=== PATIENT | male | born 1975 | race Caucasian/White ===

== ENCOUNTER 2016-12-12 13:15 | Observation (INO) | payer OTHER ==
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
--- NOTE | ~2016-12-12 | EEG ---
Electroencephalogram [facility] [address] [place]. [address] NAME: BHASKAR RODRIGUES : 73 STATUS : ADM Ian PAT#: [id number] AGE: 41 ADM/REG DATE : 12/12/16 MR#: [id number] REPORT SERV DATE: 12/14/16 DICTATED BY: DATE: REPORT STATUS : Draft TRANSCRIBED BY: MODL DATE: 12/14/16 CLINICAL INDICATION: Loss of consciousness episodes. DESCRIPTION: This EEG was performed using 10/20 electrode placement system. During this EEG study, the patient was noted to have symmetric background activity with predominant occipital rhythm of 9 to 10 hertz. Photic stimulation was performed with appropriate driving response. Hyperventilation was also performed. No focal abnormalities, seizure activity, or seizure discharge was noted during the EEG study. During the EEG study, the patient was noted to have frequent bilateral frontal beta activities with a concern for medication side effects such as benzodiazepine or phenobarbital; however, no focal abnormalities, seizure activity, or seizure discharge was otherwise noted during the EEG evaluation. The patient achieved drowsy state during the EEG study. INTERPRETATION: This EEG study obtained during awake and drowsy state may be considered within normal limits. No focal abnormalities, seizure activity, or seizure discharge was noted. Of note, normal EEG does not preclude the diagnosis of seizure disorder. Clinical correlation is recommended. [facility] Theron Pacheco MD / [id number] CC: Kelly Mora M.D.
--- NOTE | ~2016-12-12 | DS ---
Discharge Summary [facility] [address] [place]. [address] NAME: BHASKAR RODRIGUES : 73 STATUS : ADM Ian PAT#: [id number] AGE: 41 ADM/REG DATE : 12/12/16 MR#: [id number] REPORT SERV DATE: 12/14/16 DICTATED BY: KATIE PACK DATE: 12/14/16 REPORT STATUS : Draft TRANSCRIBED BY: MODMarshal DATE: 12/14/16 ADMISSION DATE: 12/12/2016 DISCHARGE DATE: 12/14/2016 DIAGNOSIS ON ADMISSION: 1. Syncopal episodes. 2. Acute sinusitis. 3. Depression and anxiety. 4. Reported history of aortic valvular disease. 5. History of depression and anxiety. DIAGNOSIS ON DISCHARGE: 1. Status post syncopal/presyncopal episodes at home with consciousness loss. No evidence of orthostatic hypotension. 2. Polypharmacy on multiple medications which could cause lethargy as well as elevated heart rate, currently on Adderall. 3. History of intermittent explosive disorder and panic attacks. 4. Possible migraine as a cause of consciousness loss versus panic attacks and medication side effect. Questionable history of narcolepsy, still under evaluation per Dr. Del Castillo. 5. Negative cardiac workup with normal echocardiogram. No evidence of valvular heart disease. Normal telemetry strip. Bail Agent Dr. Cantrell did not recommend any further workup and the patient recommended to follow up with Dr. Del Castillo. 6. Slightly enlarged thyroid. Needs outpatient thyroid ultrasound to be arranged per Dr. Braeden Caro. 7. Polypharmacy needs to reduce Adderall and Klonopin under the guidance of primary care physician. 8. Intermittent explosive disorder. Depakote was recommended per neurologist for mood control. CONSULTANTS DURING THIS HOSPITALIZATION: Nurse practitioner of Neurology, Jumana Calderon with Dr. Pacheco and sales process manager, Dr. Cantrell. IMAGING STUDIES DONE DURING THIS HOSPITALIZATION: Chest x-ray on December 12 normal chest x- ray. No evidence of any pneumonia. CT of the brain without contrast, December 12, 2016, no acute intracranial abnormality. CTA of the brain with and without contrast, unremarkable appearance of intracranial arterial circulation. No acute intracranial abnormality. Left maxillary sinus disease. CTA of the neck, no significant carotid and vertebral artery stenosis. Nodular changes in the right thyroid lobe measuring up to 13 mm in size; suggest further evaluation with thyroid ultrasound. Left maxillary sinus disease. Echocardiogram done on 12/13/2016, showed normal left ventricular systolic function with ejection fraction 50% to 55%. Mild diastolic dysfunction. Dilated left atrium. Normal right ventricular chamber size and systolic function. No evidence of significant valvular disease. No evidence of any regurgitation or stenosis. Bilateral carotid ultrasound: No significant carotid artery stenosis on both sides. MRI of the brain, 12/13/2016, negative Discharge Summary [address] [address] NAME: BHASKAR RODRIGUES : 73 STATUS : ADM Ian PAT#: [id number] AGE: 41 ADM/REG DATE : 12/12/16 MR#: [id number] REPORT SERV DATE: 12/14/16 DICTATED BY: KATIE PACK DATE: 12/14/16 REPORT STATUS : Draft TRANSCRIBED BY: PEACE DATE: 12/14/16 MRI of the brain. Electroencephalography done today was within normal limits. HISTORY OF PRESENT ILLNESS: Briefly, this is a 41-year-old male who was admitted by my colleague, Dr. Christa Cunningham, who basically admitted this patient for syncopal/presyncopal episodes and also the patient was telling that he has obstructive aortic valve disease and the patient had two syncopal episodes or near syncopal according to the dictation of Dr. Cunningham. For the details, see dictation of Dr. Cunningham. HOSPITAL COURSE: Briefly, the patient was admitted to the hospital and his blood pressure checked and he was not orthostatic. His blood pressure on lying down was 132/88 and on standing was 136/75. He had mild tachycardia but it was related to the patient using Adderall, and the patient was explained that Adderall can cause tachycardia and can cause some problems and he was recommended to taper his Adderall under the guidance of his primary care physician. Also on further workup, sales process manager was consulted. He did not find any cardiac pathology. His echocardiogram was normal as well as telemetry strip did not show any significant abnormalities. Dr. Cantrell recommended patient to follow up with Dr. Del Castillo to continue further evaluation. The patient reported that he may have a narcolepsy and Dr. Del Castillo was referring him to some studies regarding this. In the same time, the patient told me that he has intermittent explosive disorder when he has episodes of anger and then he cannot remember what happened. Neurology was consulted. Jumana Calderon, nurse practitioner, saw the patient and he thinks that the patient may have some mood problems, so she recommended the patient to be on Depakote. For this reason, he thinks he may have a migraine which could also cause episodes of consciousness loss especially with a complicated migraine. There is no evidence of any vertebrobasilar insufficiency. The CTA of the brain and the neck was normal as well as MRI and every other study. The patient also is on Klonopin for generalized anxiety and panic attacks, and he takes 2 mg three times a day. Klonopin can also cause increased sleepiness and it can cause also episodes of consciousness loss. It was recommended to taper Klonopin under the guidance of the primary care doctor. It was explained to the patient that he cannot stop Klonopin abruptly, but it could be tapered. His tachycardia was also related to his Adderall; if he will come of Adderall, his tachycardia will resolve. Bail Agent did not recommend any beta blockage on this patient. This is related to Adderall. His blood pressure is still in the normal range. He has chronic sinusitis without any fever without any pain. He will complete his Levaquin for two more days. Also, the patient had enlarged thyroid on the CT scan but his thyroid function was normal. His TSH was 1.9. Free T4 was 1.17. We recommend outpatient thyroid ultrasound to be arranged per Dr. Braeden Caro or his partner. OVERALL IMPRESSION: Passing out episodes could be related to polypharmacy, Klonopin, Adderall which should be tapered as well as the patient has intermittent explosive disorder which also could be related to it, and complicated migraine is also a possibility. For this reason, the patient is placed on Depakote and as well as for mood control. Jumana Calderon Discharge Summary [address] [address] NAME: BHASKAR RODRIGUES : 73 STATUS : ADM Ian PAT#: [id number] AGE: 41 ADM/REG DATE : 12/12/16 MR#: [id number] REPORT SERV DATE: 12/14/16 DICTATED BY: KATIE PACK DATE: 12/14/16 REPORT STATUS : Draft TRANSCRIBED BY: PEACE DATE: 12/14/16 recommended Depakote to be given at the dose 250 mg p.o. twice a day, and Depakote level needs to be checked, per primary care physician, in seven days. The patient also told that he should not drive and the patient told me that he is not driving. The patient is discharged in a stable condition. He needs to follow up with Dr. Braeden Caro or Yan Hernandez at [facility] walk-in [facility] in one week. Serum Depakote level and ammonia level needs to be checked in a week. Here his ammonia level was mildly elevated at 42 but he did not have any sleepiness. His all other lab work was in the normal range. The patient to have outpatient thyroid ultrasound to be arranged per Dr. Braeden Caro. This was also explained to the patient. DISCHARGE MEDICATIONS: 1. Aspirin 81 mg p.o. daily, not to take on an empty stomach. 2. Depakote 250 p.o. twice a day. 3. Zoloft 50 mg a day. 4. Adderall 10 mg p.o. b.i.d., and the patient was told that it needs to be tapered per primary care physician. He needs to discuss with primary care physician regarding tapering this. 5. The patient to stop Flexeril. 6. The patient to stop acetaminophen with codeine. 7. Multivitamins daily. 8. Klonopin 2 mg p.o. t.i.d. and it needs to be tapered per primary care physician. He needs to discuss regarding tapering Klonopin with primary care physician. Depakote level to be checked in one week per primary care, Dr. Braeden Caro and recheck ammonia level in one week. Ultrasound of the thyroid to be arranged as an outpatient per primary care physician. The patient to follow up also with Dr. Del Castillo outpatient as scheduled. The patient was discharged in a stable condition. I spent 45 minutes on discharging this patient. DICTATED BY: Altagracia Lee/PEACE Katie Pack M.D. / [id number] CC: Altagracia Lee M.D.
--- NOTE | ~2016-12-12 | HP ---
History And Physical [facility] [address] [place]. [address] NAME: BHASKAR RORDIGUES : 73 STATUS : ADM Ian PAT#: [id number] AGE: 41 ADM/REG DATE : 12/12/16 MR#: [id number] REPORT SERV DATE: 12/13/16 DICTATED BY: CHRISTA KENDRICK DATE: 12/12/16 REPORT STATUS : Draft TRANSCRIBED BY: MODL DATE: 12/12/16 DATE OF ADMISSION: 12/12/2016 CHIEF COMPLAINT: Syncopal episodes x2 two days. HISTORY OF PRESENT ILLNESS: This is a very pleasant 41-year-old gentleman with past medical history significant for prior concussion in 2016. The patient has depression and anxiety, prior cataract surgery. He said that after his concussion in 2016 he has been sent to Dr. Del Castillo, Cardiology, who did a Tilt test as well as he have had a 2D echo which he was told that he has some aortic valve disease that got "more severe and more obstructed," he will need surgery. He also has a history of prior bronchitis and sinusitis presenting today to [facility] Emergency Room after he had two syncopal, near syncopal episodes. He is telling me today in the morning he got up and apparently he passed out while he was home, but he has been aware of what was going around himself he said. He also called EMS and at that time EMS came, he was awaiting for them outside. They checked his blood pressure and while he was sitting he had another near syncopal episode. For two weeks the patient says he has not felt very well. He had some nausea and vomiting, and some upper respiratory infection with sinus congestion; however, since prior concussions from last year, he has not had any other symptoms. He came to [facility] accompanied by EMS. He also said that he had some intermittent chest pain, but no chest pain currently. No shortness of breath. No PND or orthopnea. He did not have current nausea, vomiting, diarrhea, or constipation. He has not had any increased urinary frequency, urgency, and no other complaints. The patient has been evaluated in the emergency room, and the Hospitalist Service has been asked for admission, further evaluation, and treatment. PAST MEDICAL HISTORY: Significant for depression, anxiety, prior concussion, history of bronchitis, sinus infection, history of cataract surgery, and possible valvular disease. PAST SURGICAL HISTORY: Include cataract surgery. ALLERGIES: HE IS ALLERGIC TO PENICILLIN. SOCIAL HISTORY: He denies tobacco or alcohol. He does not take any IV drugs. He admits that he was taking marijuana in the past. HOME MEDICATIONS: Medications at home include: 1. Tylenol No. 3. 2. Adderall. 3. Klonopin. 4. Flexeril. 5. Multivitamin. 6. Zoloft. REVIEW OF SYSTEMS: A 14-point review of systems has been obtained and pertinent positives have been listed into the history of present illness. Otherwise, negative except those underlying above. History And Physical [address] [address] NAME: BHASKAR RODRIGUES : 73 STATUS : ADM Ian PAT#: [id number] AGE: 41 ADM/REG DATE : 12/12/16 MR#: [id number] REPORT SERV DATE: 12/13/16 DICTATED BY: CHRISTA KENDRICK DATE: 12/12/16 REPORT STATUS : Draft TRANSCRIBED BY: PEACE DATE: 12/12/16 PHYSICAL EXAMINATION: VITAL SIGNS: Currently, the patient is afebrile. Blood pressure 125/74, heart rate 94, respiratory rate 22, and saturating 100% on room air. GENERAL: He is a very pleasant, well-developed, well-nourished gentleman, in no acute distress. He is alert and oriented x3. He is nonfocal. He follows all his commands appropriately. HEENT: Pupils equal, round, and reactive to light. Extraocular movements intact. No JVD. No lymphadenopathy. No thyromegaly appreciated. CHEST: Bilateral air entry. Clear anteroposterior. No wheezes, crackles, or rhonchi appreciated. CARDIOVASCULAR: Regular rate and rhythm. S1, S2 positive. No S3, no S4. No murmurs, rubs, or gallops appreciated. ABDOMEN: Soft with positive bowel sounds. Nontender. No guarding. No rebound. EXTREMITIES: No clubbing, cyanosis, or edema. NEUROLOGIC: The patient is alert and oriented x3. Nonfocal. He follows all commands appropriately. LABORATORY DATA: Labs from today include sodium 141, potassium 3.8, chloride 108, CO2 of 28, BUN 14, creatinine 0.74, and glucose is 95. Troponin I is less than 0.02. Alcohol less than 10. BNP 18. Lactate is 0.9. White count 10.1, hemoglobin 15.8, hematocrit 46.1, and platelets 348. His D-dimer has been -0.41. INR 1.1. UA has been negative. Urine drug screen positive for amphetamine, cannabinoids, and opiates. Chest x-ray, portable, does not show any acute cardiopulmonary abnormalities. CT of the brain without contrast has shown no acute intracranial abnormality and paranasal sinus disease. ASSESSMENT AND PLAN: This is a very pleasant 41-year-old gentleman with. 1. Syncopal episodes. 2. Acute sinusitis. 3. Depression and anxiety. 4. Reported history of aortic valvular disease. PLAN: 1. The patient is going to be admitted to Hospitalist Service. Place him on IV fluids, aspirin, MRI of his brain, 2D echo, and carotid ultrasound. Rule out for MN by serial cardiac enzymes, serial EKGs and carotid ultrasound, 2D echo, and consult Dr. Lewis, Cardiology, for further recommendation. History And Physical [address] [address] NAME: BHASKAR RODRIGUES : 73 STATUS : ADM Ian PAT#: [id number] AGE: 41 ADM/REG DATE : 12/12/16 MR#: [id number] REPORT SERV DATE: 12/13/16 DICTATED BY: CHRISTA KENDRICK DATE: 12/12/16 REPORT STATUS : Draft TRANSCRIBED BY: PEACE DATE: 12/12/16 2. Sinusitis. We are going to provide antibiotics with IV Levaquin, Mucinex, supportive care as well. 3. History of depression and anxiety. We will continue his home medication including Zoloft and Klonopin p.r.n. We are going to check a TSH, free T4, and urine drug screen. We are going to provide reasonable pain and nausea control, and GI and DVT prophylaxis, that has been discussed extensively with the patient. All the questions have been answered in full. Further workup and recommendation pending above. It is worthwhile to note that the patient is going to be followed by Hospitalist Service. [facility] Christa Kendrick M.D. / [id number] CC: Kelly Mora M.D.
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
[2016-12-12 14:24] LABS: BASOPHILS 0.1 %; BASOPHILS ABSOLUTE 0.01 10/3/uL (0.0-0.16); EOSINOPHILS 0.4 %; EOSINOPHILS ABSOLUTE 0.04 10/3/uL (0.0-0.53); HEMATOCRIT 46.1 % (40.0-51.0); HEMOGLOBIN 15.8 g/dL (13.6-17.8); IMMATURE GRANULOCYTES 0.4 %; IMMATURE GRANULOCYTES ABSOLUTE 0.04 10/3/uL (0.0-0.11); LYMPHOCYTES 23.8 %; MEAN CORPUS HGB CONC 34.3 g/dL (32.0-36.0); MEAN CORPUSCULAR HEMOGLOB 27.8 pg (26.0-34.0); MEAN CORPUSCULAR VOLUME 81.2 fL (80-100); MEAN PLATELET VOLUME 8.8 fL (9.2-13.0); MONOCYTES 7.7 %; MONOCYTES ABSOLUTE 0.78 10/3/uL (0.21-1.20); NEUTROPHILS 67.6 %; NEUTROPHILS ABSOLUTE 6.81 10/3/uL (2.02-8.40); PLATELET COUNT 348 10/3/uL (150-400); RBC DISTRIBUTION WIDTH 13.7 % (12.0-16.0); RED CELL COUNT 5.68 10/6/uL (4.7-6.1); WHITE BLOOD CELLS 10.1 10/3/uL (4.5-10.5)
[2016-12-12 14:25] LABS: MANUAL DIFF NO %
[2016-12-12 14:31] LABS: INTERNATIONAL NORMAL RATI 1.1 UNITS (-); PARTIAL THROMBO TIME 32.5 SEC (22.5-37.2); PROTIME (NOT ORD) 14.5 SEC (12.0-14.5)
[2016-12-12 14:34] LABS: D-DIMER QUANTITATIVE 0.41 ug/mLFEU (< 0.50)
[2016-12-12 14:42] LABS: ALCOHOL < 10 MG/DL (0); BUN (BLOOD UREA NITROGEN) 14 MG/DL (6-23); CALCIUM, SERUM 9.1 MG/DL (8.5-10.4); CHEST PAIN PROFILE TAT 0 Hrs 24 Mins; CHLORIDE, SERUM 108 MMOL/L (96-112); CO2 (CARBON DIOXIDE) 28 MMOL/L (24-34); CREATININE 0.74 MG/DL (0.70-1.30); GFR AFRICAN AMERICAN 132 ML/MIN (>=60); GFR NON AFRICAN AMERICAN 114 ML/MIN (>=60); GLUCOSE, SERUM 95 MG/DL (60-99); POTASSIUM, SERUM 3.8 MMOL/L (3.5-5.3); SODIUM, SERUM 141 MMOL/L (135-148); TROPONIN I <0.02 NG/ML (<0.05)
[2016-12-12 16:48] LABS: ASCORBIC ACID (UR NOT ORDER) NEG (NEG); BILIRUBIN, URINE NEGATIVE (NEG); ER URINALYSIS TAT 0 Hrs 00 Mins; KETONE, URINE NEGATIVE (NEG); LEUKOCYTE ESTERASE(NOT OR NEG (NEG); NITRITE (URINE) NEG (NEG); WBC (NOT ORDERED) (RFLEX) 0 (0-5)
[2016-12-12 16:54] LABS: AMPHETAMINES (NOT ORD) POS (NEG); BENZODIAZEPINES (NOT ORD) NEG (NEG); CANNABINOIDS (THC) POS (NEG); COCAINE (NOT ORDERED) NEG (NEG); OPIATES POS (NEG); PHENCYCLIDINE(PCP) NEG (NEG)
[2016-12-12 16:55] LABS: BARBITURATES (NOT ORDERED NEG (NEG); TRICYCLICS NEG (NEG)
[2016-12-12] MEDS ORDERED: T3 PO (17:31)
[2016-12-12] MEDS ORDERED: ADDER10 PO (17:31)
[2016-12-12] MEDS ORDERED: ZOL50 PO (17:32)
[2016-12-12] MEDS ORDERED: KLONO2 PO (17:32)
[2016-12-12] MEDS ORDERED: CENTRUM PO (17:32)
[2016-12-12] MEDS ORDERED: FLEX PO (17:32)
[2016-12-12 20:44] LABS: FREE T4 1.17 NG/DL (0.76-1.46); PHOSPHORUS, SERUM 2.6 MG/DL (2.5-4.5); SALICYLATE 2.1 MG/DL (-)
[2016-12-12 20:49] LABS: FOLATE 9.1 NG/ML (>5.2)
[2016-12-12 20:50] LABS: ACETAMINOPHEN LEVEL (TYLENOL) < 2.0 MCG/ML (10.0-20.0)
[2016-12-12 21:09] LABS: CPK 112 U/L (0-200); TROPONIN I <0.02 NG/ML (<0.05)
[2016-12-12 21:10] LABS: CK-MB 1.4 NG/ML
[2016-12-13 04:00] LABS: HEMATOCRIT 46.2 % (40.0-51.0); HEMOGLOBIN 15.9 g/dL (13.6-17.8); RED CELL COUNT 5.63 10/6/uL (4.7-6.1); WHITE BLOOD CELLS 8.5 10/3/uL (4.5-10.5)
[2016-12-13 04:01] LABS: BASOPHILS 0 %; EOSINOPHILS 0 %; IMMATURE GRANULOCYTES 0.4 %; IMMATURE GRANULOCYTES ABSOLUTE 0.03 10/3/uL (0.0-0.11); LYMPHOCYTES 10.3 %; LYMPHOCYTES ABSOLUTE 0.87 10/3/uL (0.67-4.30); MANUAL DIFF NO %; MEAN CORPUS HGB CONC 34.4 g/dL (32.0-36.0); MEAN CORPUSCULAR HEMOGLOB 28.2 pg (26.0-34.0); MEAN CORPUSCULAR VOLUME 82.1 fL (80-100); MEAN PLATELET VOLUME 8.7 fL (9.2-13.0); MONOCYTES 2.1 %; MONOCYTES ABSOLUTE 0.18 10/3/uL (0.21-1.20); NEUTROPHILS 87.2 %; NEUTROPHILS ABSOLUTE 7.38 10/3/uL (2.02-8.40); PLATELET COUNT 374 10/3/uL (150-400); RBC DISTRIBUTION WIDTH 13.4 % (12.0-16.0)
[2016-12-13 04:08] LABS: INTERNATIONAL NORMAL RATI 1.2 UNITS (-); PARTIAL THROMBO TIME 31.5 SEC (22.5-37.2)
[2016-12-13 04:19] LABS: BUN (BLOOD UREA NITROGEN) 14 MG/DL (6-23); CALCIUM, SERUM 8.8 MG/DL (8.5-10.4); CHLORIDE, SERUM 110 MMOL/L (96-112); CHOL/HDL RATIO(NOT ORDER) 3.8 (0-5); CHOLESTEROL 150 MG/DL (< 200); CO2 (CARBON DIOXIDE) 26 MMOL/L (24-34); CREATININE 0.73 MG/DL (0.70-1.30); GFR AFRICAN AMERICAN 133 ML/MIN (>=60); GFR NON AFRICAN AMERICAN 114 ML/MIN (>=60); HDL CHOLESTEROL 39 MG/DL (> 39); LDL CHOLESTEROL 104 MG/DL (< 130); NON-HDL CHOLESTEROL 111 MG/DL (< 160); POTASSIUM, SERUM 4.4 MMOL/L (3.5-5.3); SODIUM, SERUM 141 MMOL/L (135-148); TRIGLYCERIDE 38 MG/DL (< 150); TROPONIN I <0.02 NG/ML (<0.05)
[2016-12-13 04:22] LABS: CPK 81 U/L (0-200); GLUCOSE, SERUM 132 MG/DL (60-99)
[2016-12-13 04:47] LABS: B NATRIURETIC PEPTIDE (BNP) 34.7 PG/ML (< 100.0)
[2016-12-13 04:56] LABS: PROCALCITONIN <0.05 ng/mL (<0.5)
[2016-12-13 12:34] LABS: CPK 81 U/L (0-200); TROPONIN I <0.02 NG/ML (<0.05)
[2016-12-13 12:35] LABS: CK-MB 1.2 NG/ML
[2016-12-14 05:46] LABS: BUN (BLOOD UREA NITROGEN) 13 MG/DL (6-23); CALCIUM, SERUM 8.9 MG/DL (8.5-10.4); CHLORIDE, SERUM 110 MMOL/L (96-112); CO2 (CARBON DIOXIDE) 28 MMOL/L (24-34); CREATININE 0.73 MG/DL (0.70-1.30); GFR AFRICAN AMERICAN 133 ML/MIN (>=60); GFR NON AFRICAN AMERICAN 114 ML/MIN (>=60); GLUCOSE, SERUM 103 MG/DL (60-99); POTASSIUM, SERUM 3.9 MMOL/L (3.5-5.3); SODIUM, SERUM 142 MMOL/L (135-148)
[2016-12-14] MEDS ORDERED: ASAB PO (16:47)
[2016-12-14] MEDS ORDERED: DEPAKOT250 PO (16:48)
== END 2016-12-14 17:42 | disposition home or self-care (01) ==
LOC: ER 13:15 → CDU1 17:59
PROVIDERS: Hospitalist; Internal Medicine; Nurse Practitioner Family
DX: R55 Syncope and collapse (principal); J01.90 Acute sinusitis, unspecified; F41.9 Anxiety disorder, unspecified; F32.9 Major depressive disorder, single episode, unspecified; J40 Bronchitis, not specified as acute or chronic; I35.9 Nonrheumatic aortic valve disorder, unspecified; G47.419 Narcolepsy without cataplexy; G47.33 Obstructive sleep apnea (adult) (pediatric); Z88.0 Allergy status to penicillin; Z79.82 Long term (current) use of aspirin; Z98.41 Cataract extraction status, right eye; Z96.1 Presence of intraocular lens; Z98.42 Cataract extraction status, left eye; Z79.899 Other long term (current) drug therapy
CPT/HCPCS: 70450; 70496; 70498; 70551; 71010; 80048; 80061; 80305; 80307; 81001; 82140; 82533; 82550; 82553; 82607; 82746; 83036; 83605; 83615; 83690; 83735; 83880; 84100; 84145; 84439; 84443; 84484; 85025; 85379; 85610; 85730; 87040; 93005; 93306; 93880; 95816; 96372; 96374; 96375; 99285; A9270-GY; G0378; J1956; J2930; Q9967